=== PATIENT | female | born 1950 | race African-American/Black ===

== ENCOUNTER 2020-09-06 12:13 | Inpatient (IN) | payer OTHER ==
[~2020-09-06] VITALS: Ht 160 cm; Wt 79.4 kg
[~2020-09-06 12:13] MED LIST: ASPIR 8181 MG PO; ATENOLOL 50MG T50 M1 PO; BENICAR20 MG PO; BUTRANS1 EAC2 TD; CALCIUM 500 +1 EAC5 PO; CIPRO500 MG PO; COLACE100 MG PO; COPPER GLUCONATE PO; CRESTOR10 MG PO; CYMBALTA30 MG PO; DHEA50 M1 PO; FISH OIL 1,001000 M2 PO; GABAPENTIN 100100 MG PO; KEFLEX500 MG PO; LEVEMIR SUBQ; LEVOTHYROXIN0.175 MG PO; LEVOTHYROXINE 0.15MG PO; LOPRESSOR25 PO; NABUMETONE 750750 M1 PO; NEXIUM40 MG PO; NORVASC5 MG PO; PLAVIX 75 MG TA75 M1 PO; REQUIP XL2 MG PO; REQUIP1 MG PO; TRAMADOL 50 MG50 MG PO; VITAMIN D32000 UNI1 PO; ZINC50 M1 PO; [UNRECOGNIZED DRUG - MIXTURE] PO
[2020-09-06 12:34] VITALS: BP 209/79
[2020-09-06] MEDS ORDERED: LEVEMIR100 UNIT/1 SUBQ (12:38)
[2020-09-06] MEDS ORDERED: CRESTOR10 MG PO (12:38)
[2020-09-06] MEDS ORDERED: SYNTHROID150 MCG PO (12:39)
[2020-09-06 12:56] LABS: ABSOLUTE LYMPHOCYTES 3.1 thou/uL (0.8-5.3); ABSOLUTE MONOCYTES 0.4 thou/uL (0.0-1.2); ABSOLUTE NEUTROPHILS 4.5 thou/uL (1.6-8.1); BASOPHILS 0.2 %; HEMATOCRIT 34.1 % (37.0-47.0); HEMOGLOBIN 11.6 gm/dL (12.0-15.0); LYMPHOCYTES 38.6 %; MCH 27.8 pg (26.0-34.0); MCHC 33.9 g/dL (28.0-37.0); MONOCYTES 4.9 %; MPV 8.9 fl. (7.2-11.1); NUCLEATED RBCS 0 /100WBC; PLATELET COUNT* 241 thou/uL (150-400); POLYS 56.3 %; RBC 4.16 mil/uL (4.20-5.00); RDW-CV 14.8 % (10.5-14.5)
[2020-09-06 13:07] LABS: POTASSIUM 2.7 mmol/L (3.5-5.1)
[2020-09-06 13:16] LABS: ALBUMIN 4.1 g/dL (3.4-5.0); MAGNESIUM 1.7 mg/dL (1.8-2.4); TOTAL BILIRUBIN 0.5 mg/dL (<0.1-1.0); TOTAL PROTEIN 8.2 g/dL (6.4-8.2)
--- NOTE | 2020-09-06 15:47 | 2DMMODE ---
[place] [address] 2 D/M-MODE ECHOCARDIOGRAM Name: ANTON KWAN Room: [place] [address] ADM IN .R.#: [id number] Admission: 09/06/20 Attend Phys: Sheldon Summers, Discharge: Date of : 46 Date of Service: 09/06/20 1547 Report #: [id number] THIS REPORT FOR: cc: Candi Meyer MD, Ghazal A. MD Holkins, John M. MD [facility] ~ APPROVED REPORT Study performed: 09/06/2020 15:04:52 EXAM: Comprehensive 2D, Doppler, and color-flow Echocardiogram Patient Location: In-Patient Room #: er Status: routine BSA: 1.81 HR: 57 bpm BP: 172/82 mmHg Rhythm: NSR Other Information Study Quality: Good Indications Abnormal ECG 2D Dimensions IVSd: 9.31 (7-11mm) LVOT Diam: 18.66 (18-24mm) LVDd: 46.91 mm PWd: 7.92 (7-11mm) Ascending Ao: 27.93 (22-36mm) LVDs: 27.44 (25-40mm) Aortic Root: 25.75 mm Volumes Left Atrial Volume (Systole) LA ESV Index: 28.40 mL/m2 Aortic Valve AoV Peak Moises.: 1.51 m/s AO Peak Gr.: 9.14 mmHg LVOT Max P.27 mmHg AO Mean Gr.: 4.97 mmHg LVOT Mean P.42 mmHg LVOT Max V: 1.15 m/s AO V2 VTI: 32.37 cm LVOT Mean V: 0.70 m/s BONIFACIO (VTI): 2.18 cm2 LVOT V1 VTI: 25.86 [place] [id number] 2 D/M-MODE ECHOCARDIOGRAM Name: ANTON KWAN Room: [address] IN .R.#: [id number] Admission: 09/06/20 Attend Phys: Sheldon Summers, Discharge: Date of : 46 Date of Service: 09/06/20 1547 Report #: [id number] Mitral Valve E/A Ratio: 1.55 MV Decel. Time: 161.61 ms MV E Max Moises.: 1.47 m/s MV PHT: 46.87 ms MVA (PHT): 4.69 cm2 TDI E/Lateral E': 12.25 E/Medial E': 18.38 Medial E' Moises.: 0.08 m/s Lateral E' Moises.: 0.12 m/s Pulmonary Valve PV Peak Moises.: 0.99 m/s PV Peak Gr.: 3.89 mmHg Tricuspid Valve RAP Estimate: 5.00 mmHg TR Peak Gr.: 54.74 mmHg RVSP: 59.00 mmHg PA Pressure: 59.00 mmHg Left Ventricle The left ventricle is normal size. There is normal LV segmental wall motion. There is normal left ventricular wall thickness. Left ventricular systolic function is normal. The left ventricular ejection fraction is within the normal range. LVEF is 55-60%. Grade IV - fixed restrictive diastolic dysfunction. Right Ventricle Right ventricle is mildly dilated. The right ventricular systolic function is normal. Atria The left atrium size is normal. Right atrium is mildly dilated. Aortic Valve The aortic valve is normal in structure. No aortic regurgitation is present. There is no aortic valvular stenosis. Mitral Valve Mild mitral annular calcification. Moderate mitral regurgitation. No evidence of mitral valve stenosis. Tricuspid Valve The tricuspid valve is normal in structure. Moderate tricuspid regurgitation. Mod[place] [id number] 2 D/M-MODE ECHOCARDIOGRAM Name: ANTON KWAN Room: [address] IN [facility]#: [id number] Admission: 09/06/20 Attend Phys: Sheldon Summers, Discharge: Date of : 46 Date of Service: 09/06/20 1547 Report #: [id number] Pulmonic Valve The pulmonary valve is normal in structure. There is no pulmonic valvular regurgitation. Great Vessels The aortic root is normal in size. IVC is normal in size and collapses >50% with inspiration. Pericardium There is no pericardial effusion. <Conclusion> The left ventricle is normal size. There is normal left ventricular wall thickness. Left ventricular systolic function is normal. The left ventricular ejection fraction is within the normal range. LVEF is 55-60%. Right ventricle is mildly dilated. The right ventricular systolic function is normal. The left atrium size is normal. Right atrium is mildly dilated. The aortic valve is normal in structure. Mild mitral annular calcification. Moderate mitral regurgitation. No evidence of mitral valve stenosis. The tricuspid valve is normal in structure. Moderate tricuspid regurgitation. Moderate pulmonary hypertension. IVC is normal in size and collapses >50% with inspiration. There is no pericardial effusion. There is normal LV segmental wall motion. <ELECTRONICALLY SIGNED> By: Armando Rae MD, FACC 09/06/20 1547 1547 1547 Armando Rae MD, FACC /INF
--- NOTE | 2020-09-06 16:13 | EKG ---
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1950 Requested By: Ruel Mccauley Order Number: [id number] MD: Armando Rae Measurements Intervals [place] Rate: 56 P: 0 MS: 310 QRS: -33 QRSD: 98 T: QT: 546 QTc: 528 Interpretive Statements Sinus rhythm with type I second-degree AV block LVH w/ repol abnormalities, possible ischemia Prolonged QT interval Compared to ECG 08/27/2016 16:45:05 Type I second-degree AV block is noted and the heart rate has decreased Possible ischemia now present Prolonged QT interval now present Electronically Signed On 09-06-2020 16:13:45 CDT by Armando Rae [email or web address] <ELECTRONICALLY SIGNED> By: Armando Rae MD, [facility] 09/06/20 1613 1439 1439 Armando Rae MD, [facility] /EPI
[2020-09-06 19:00] VITALS: BP 184/65
[2020-09-06 23:00] VITALS: BP 201/71
[2020-09-07 03:57] LABS: ABSOLUTE LYMPHOCYTES 2.1 thou/uL (0.8-5.3); ABSOLUTE MONOCYTES 0.5 thou/uL (0.0-1.2); ABSOLUTE NEUTROPHILS 3.6 thou/uL (1.6-8.1); BASOPHILS 0.3 %; HEMATOCRIT 34.2 % (37.0-47.0); HEMOGLOBIN 11.5 gm/dL (12.0-15.0); LYMPHOCYTES 33.8 %; MCH 27.7 pg (26.0-34.0); MCHC 33.7 g/dL (28.0-37.0); MCV 82.4 fL (80.0-100.0); MONOCYTES 7.5 %; MPV 9.1 fl. (7.2-11.1); NUCLEATED RBCS 0 /100WBC; PLATELET COUNT* 216 thou/uL (150-400); POLYS 58.4 %; RBC 4.15 mil/uL (4.20-5.00); RDW-CV 14.8 % (10.5-14.5); WBC 6.2 thou/uL (4.0-11.0)
[2020-09-07 05:41] LABS: POTASSIUM 3.1 mmol/L (3.5-5.1)
[2020-09-07 05:42] LABS: CALCIUM 8.8 mg/dL (8.5-10.1); CREATININE 0.7 mg/dL (0.6-1.3)
[2020-09-07] MEDS ORDERED: SYNTHROID125 MC1 PO (07:55)
[2020-09-07 08:00] VITALS: BP 188/72
--- NOTE | 2020-09-07 09:45 | NUR ---
PT TRANSPORTED TO STRESS TEST.
[2020-09-07 12:48] VITALS: BP 179/67
--- NOTE | 2020-09-07 12:51 | EKG ---
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 <ELECTRONICALLY SIGNED> By: Armando Rae MD, [facility] 09/07/20 1251 1230 1230 Armando Rae MD, [facility] /EPI
[2020-09-07] MEDS ORDERED: NORVASC5 MG PO (15:39)
[2020-09-07] MEDS ORDERED: COZAAR 50 MG TA50 M1 PO (15:39)
--- NOTE | 2020-09-07 16:00 | NUR ---
PATIENT TRANSFER FROM ER EARLIER, ASSUMED CARE OF PATIENT. DENIES CHEST PAIN AT THIS TIME. STRESS TEST COMPLETED EARLIER. NOTIFIED BY CARDIOLOGY OK TO DISCHARGE. DISCHARGE ORDERS RECEIVED BY PRIMARY. GIVEN PRN BP IV MED FOR ELEVATED BP - RECHECKED BP 156/69. EDUCATED ON DISCHARGE INSTRUCTIONS, VERBALIZED UNDERSTANDING. ALL PERSONAL BELONGINGS COLLECTED BY PATIENT FOR DISCHARGE. AWAITING FOR FAMILY TO ARRIVE FOR RIDE HOME. 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
[2020-09-07 16:57] VITALS: BP 156/69
[2020-09-07 17:06] VITALS: BP 156/69
--- NOTE | 2020-09-07 17:21 | CARDNUC ---
[place] [address] CARDIAC NUCLEAR IMAGING REPORT Name: ANTON KWAN Room: [address] IN [facility]#: [id number] Admission: 09/06/20 Attend Phys: Sheldon Summers, Discharge: Date of : 46 Date of Service: 09/07/20 1721 Report #: [id number] THIS REPORT FOR: cc: Candi Meyer MD, Ghazal A. MD Liston, Michael J. MD [facility] ~ APPROVED REPORT Study performed: 09/06/2020 14:23:00 Indication: Dyspnea Patient Location: In-Patient Room #: er Stress Nurse: Fabiola Sullivan RN Ht: 5 ft 2 in Wt: 175 lbs BSA: 1.81 m2 BMI: 32.00 Medical History Medical History: Diabetes, HTN, Hyperlipidemia Medications: kcl, hydralazine, amlodipine, atenolol, rosuvastatin Allergies: penicillin, hydrocodone, tetrancycline Cardiac Risk Factors: Age, HTN, DM, Hyperlipidemia Exercise History: Physically active Resting Data Rest SPECT myocardial perfusion imaging was performed in supine position 30 minutes following the intravenous injection of 9.5 mCi of Tc-99m Sestamibi. Time of rest injection: 08:50 The images were gated to evaluate regional wall motion and calculate left ventricular ejection fraction. Administration Route: IV Administration Site: Left AC Pharmacologic Stress Pharmacologic stress test was performed by injecting Regadenoson 0.4 mg IV push over 10-15 seconds immediately followed by the intravenous injection of 32.2 mCi of Tc-99m Sestamibi. Time of stress injection: 1:30 Administration Route: IV Administration Site: Left AC Heart Rate at time of stress injection: [address] [place] [address] CARDIAC NUCLEAR IMAGING REPORT Name: ANTON KWAN Room: [address] IN ..#: [id number] Admission: 09/06/20 Attend Phys: Sheldon Summers, Discharge: Date of : 46 Date of Service: 09/07/20 1721 Report #: [id number] Gated Stress SPECT was performed 40 minutes after stress injection. The images were gated to evaluate regional wall motion and calculate left ventricular ejection fraction. Prone imaging was performed. Stress Test Details Stress Test: Pharmacologic stress testing performed using 0.4 mg of regadenoson per 5 mL given IV over 10 seconds. HR Max Heart Rate (APMHR): 149 bpm Resting HR: 65 bpm Target HR (85% APMHR): 126 bpm Max HR Achieved: 95 bpm % of APMHR: 63 Recovery HR: 71 bpm BP Resting BP: 246/104 mmHg Max BP: 247/100 mmHg Recovery BP: 191/89 mmHg ECG Resting ECG: Sinus Rhythm Stress ECG: Sinus Rhythm ST Change: None Arrhythmia: Mobitz 1 second-degree AV block Recovery ECG: Sinus Rhythm Recovery ST Change: None Recovery Arrhythmia: Mobitz 1 second-degree AV block Clinical Reason for Termination: Completed protocol The patient tolerated Lexiscan infusion without significant cardiac symptoms. Nurse Comments 650 aspirin given for headache Stress ECG Conclusion The baseline twelve-lead EKG shows sinus rhythm with type I second-degree AV block. No significant ST segment or T wave abnormalities were noted at baseline. EKGs obtained during and post Lexiscan infusion show sinus rhythm with continued type I second-degree AV block. There were no significant ST segment changes [place] [address] CARDIAC NUCLEAR IMAGING REPORT Name: ANTON KWAN Room: [address]#: [id number] Admission: 09/06/20 Attend Phys: Sheldon Summers, Discharge: Date of : 46 Date of Service: 09/07/20 1721 Report #: [id number] Study Quality Study: Good Artifact: No artifact Study Data At rest, the left ventricular ejection fraction was 80%.. Post stress, the left ventricular ejection was 80%.. TID = 1.01. Perfusion Perfusion images obtained at rest and post Lexiscan stress show uniform uptake of the radioisotope throughout the myocardium. There were no defects to suggest infarct or ischemia. Wall Motion Normal left ventricular wall motion. Nuclear Conclusion ECG Findings: negative for ischemia Clinical Findings: negative for ischemia Nuclear Findings: negative for ischemia Exercise Capacity: not assessed Left Ventricular Function: normal Risk Study: low Perfusion images show no defect to suggest infarct or ischemia. Left ventricular systolic function is normal on gated studies. This is a low risk study. <Conclusion> The baseline twelve-lead EKG shows sinus rhythm with type I second-degree AV block. No significant ST segment or T wave abnormalities were noted at baseline. EKGs obtained during and post Lexiscan infusion show sinus rhythm with continued type I second-degree AV block. There were no significant ST segment changes when compared to baseline. <ELECTRONICALLY SIGNED> By: Dany Pinon MD, FACC 09/07/201720 20 20 Dany Pinon MD, FACC /INF
--- NOTE | 2020-09-07 18:15 | NUR ---
DC'D VIA W/C ACCOMPANIED BY DAUGHTER VIA W/C WITH ALL PERSONAL BELONGINGS.
[2020-10-10] MEDS ORDERED: CHLORTHALIDONE25 MG PO (15:27)
== END 2020-09-07 18:39 | disposition home or self-care (01) | DRG 309 ==
LOC: M.ERS 12:13 → M.2W 13:42 → M.TBA-ER 13:42 → M.2W 13:42
PROVIDERS: Emergency Medicine Emergency Medical Services; ADMIT Internal Medicine; ATTEND Internal Medicine
DX: I44.1 Atrioventricular block, second degree (principal); I50.32 Chronic diastolic (congestive) heart failure; I16.0 Hypertensive urgency; E87.6 Hypokalemia; I20.9 Angina pectoris, unspecified; I10 Essential (primary) hypertension; E78.5 Hyperlipidemia, unspecified; E11.9 Type 2 diabetes mellitus without complications; E03.9 Hypothyroidism, unspecified; G62.9 Polyneuropathy, unspecified; I34.0 Nonrheumatic mitral (valve) insufficiency

== ENCOUNTER → 2020-09-25 | Outpatient (CLI) | payer OTHER ==
[~2020-09-25] MED LIST changes: +COZAAR 50 MG TA50 M1 PO; +LEVEMIR100 UNIT/1 SUBQ; +SYNTHROID125 MC1 PO; +SYNTHROID150 MCG PO
[2020-09-25 12:55] LABS: ALBUMIN 3.9 g/dL (3.4-5.0); CALCIUM 9.5 mg/dL (8.5-10.1); CREATININE 1.2 mg/dL (0.6-1.3); TOTAL BILIRUBIN 0.3 mg/dL (<0.1-1.0); TOTAL PROTEIN 8.3 g/dL (6.4-8.2)
[2020-09-25 13:19] LABS: POTASSIUM 2.9 mmol/L (3.5-5.1)
== END ==
LOC: M.LAB 12:20
PROVIDERS: ATTEND Registered Nurse
DX: I50.32 Chronic diastolic (congestive) heart failure (principal)

== ENCOUNTER → 2020-10-03 | Outpatient (CLI) | payer OTHER ==
[2020-10-03 11:29] LABS: CALCIUM 9.3 mg/dL (8.5-10.1); CREATININE 1.2 mg/dL (0.6-1.3)
== END ==
LOC: M.LAB 10:55
PROVIDERS: ATTEND Registered Nurse
DX: E87.8 Other disorders of electrolyte and fluid balance, not elsewhere classified (principal); I11.0 Hypertensive heart disease with heart failure; I50.32 Chronic diastolic (congestive) heart failure

== ENCOUNTER → 2020-10-12 | Outpatient (CLI) | payer OTHER ==
[~2020-10-12] VITALS: Ht 160 cm; Wt 77.6 kg
[~2020-10-12] MED LIST changes: +CHLORTHALIDONE25 MG PO
[2020-10-12 11:15] LABS: HEMATOCRIT 41.6 % (37.0-47.0); HEMOGLOBIN 13.7 gm/dL (12.0-15.0); MCH 26.8 pg (26.0-34.0); MCHC 32.9 g/dL (28.0-37.0); MCV 81.4 fL (80.0-100.0); MPV 9.4 fl. (7.2-11.1); RBC 5.1 mil/uL (4.20-5.00); RDW-CV 15.2 % (10.5-14.5); WBC 6.9 thou/uL (4.0-11.0)
[2020-10-12 11:23] LABS: CALCIUM 9.9 mg/dL (8.5-10.1); POTASSIUM 3.7 mmol/L (3.5-5.1)
[2020-10-12 11:33] LABS: ALBUMIN 4.2 g/dL (3.4-5.0); TOTAL BILIRUBIN 0.3 mg/dL (<0.1-1.0); TOTAL PROTEIN 8.5 g/dL (6.4-8.2)
[2020-10-12 11:36] LABS: APTT 24.6 Seconds (25.0-31.3); PROTIME 10.5 Seconds (9.20-11.50)
[2020-10-12 11:55] VITALS: BP 190/94
--- NOTE | 2020-10-12 13:44 | EKG ---
[place] [address] ELECTROCARDIOGRAM REPORT Name: ANTON KWAN Room: [facility]#: [id number] Admission: 10/12/20 Attend Phys: Dany Pinon, Discharge: Date of : 46 Date of Service: 10/12/20 1111 Report #: [id number] THIS REPORT FOR: //name// 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1950 Requested By: Dany Pinon Order Number: [id number] Reading MD: Luciano Rajan Measurements Intervals [place] Rate: 91 P: 0 PA: 141 QRS: -42 QRSD: 87 T: 67 QT: 542 QTc: 668 Interpretive Statements Second degree AV block, Mobitz I Ventricular premature complex Left anterior fascicular block Abnormal R-wave progression, late transition Left ventricular hypertrophy Prolonged QT interval Compared to ECG 09/06/2020 14:39:14 Ventricular premature complex(es) now present Left anterior fascicular block now present Possible ischemia no longer present Electronically Signed On 10-12-2020 13:44:38 CDT by Luciano Rajan [email or web address] <ELECTRONICALLY SIGNED> By: Luciano Rajan MD, [facility] 10/12/20 1344 1111 1111 Luciano Rajan MD, [facility] /EPI
[2020-10-12 15:15] VITALS: BP 178/76
[2020-10-12 15:30] VITALS: BP 188/71
[2020-10-12 15:45] VITALS: BP 186/72
--- NOTE | 2020-10-12 16:13 | CARD ---
[address] [address] CARDIAC CATH REPORT Name: ANTON KWAN Room: [facility]#: [id number] Admission: 10/12/20 Attend Phys: Dany Pinon MD Discharge: Date of : 46 Report #: [id number] THIS REPORT FOR: cc: Candi Meyer MD, Ghazal A. MD Liston, Michael J. MD [facility] ~ APPROVED REPORT Study performed: 10/12/2020 13:20:00 Patient Status: Out-Patient Room #: Event Personnel: Christiano Calzada RTR Monitor, Bertha Cisneros RTR ScrubFabrizio Tiffany RN RN, Dany Pinon Proj Engineer Exam: Insertion of Dual Chamber Permanent Pacemaker Indications: 2:1 AV Block The patient is a 70 year-old female with a history of Second-degree AV block with symptomatic bradycardia. Conscious Sedation Fentanyl 75 mcg Versed 4 mg Implanted Devices: Sonja JOHNSON, Ser# [id number], V-Lead Solia S 53, Ser# [id number], A-Lead Solia S 45, Ser# [id number] Procedure The patient underwent informed consent. We discussed the details of the procedure including the risks, which include, but not limited to bleeding, infection, vascular damage, cardiac perforation, and pneumothorax. She understood these risks and was willing to proceed. As such, she was brought to the EP/Cardiac Catheterization laboratory in a fasting and sedated state and prepped and draped in a sterile fashion, received IV antibiotics prior to initiation of the procedure and a venogram was performed showing patency of the left axillary vein. The patient underwent conscious sedation, with no related complications. The patient was brought to the EP/Cardiac Catheterization laboratory and the left chest and shoulder were prepped and draped in a sterile manner. During this case, Fluoroscopy and Iso-osmolar contrast were used for imaging. IV conscious sedation was used throughout procedure with appropriate monitoring and was performed in the [place] [address] CARDIAC CATH REPORT Name: ANTON KWAN Room: [facility]#: [id number] Admission: 10/12/20 Attend Phys: Dany Pinon MD Discharge: Date of : 46 Report #: [id number] who was an independent trained observer other than the physician performing the procedure. The left subclavian region was infiltrated with 2% Lidocaine with Epinephrine subcutaneous anesthesia. A transverse incision was made in the left upper chest cavity. The subcutaneous pocket was formed via blunt dissection. Percutaneous venous access was achieved and an introducer sheath was inserted into the left Subclavian vein. Sheaths were positions using the modified Seldinger technique Through the introducer sheaths the atrial and ventricular lead wires were positioned in the right atrial appendage and right ventricular apex respectively. Utilizing fluoroscopic guidance, the atrial and ventricular lead wires were advanced over the wires and positioned in the right atria and right ventricle respectively. Capturing and sensing thresholds were verified. The ventricular lead was interrogated and Electrode Parameters P Wave: 5.6 mV Atrial Threshold: 0.6 V at 0.40 ms Ventricular Threshold: 1.5 V at 0.40 ms Atrial Resistance: 454 ohms Ventricular Resistance: 835 ohms Dual Chamber The atrial and ventricular leads were then secured using 0 silk sutures. The subcutaneous pocket was irrigated with ancef antibiotic solution.The atrial and ventricular leads were attached to the appropriate receptacles on the pulse generator and set screws firmly tightened to insure adequate contact and stability. The lead and pulse generator were placed into the subcutaneous pocket. Sharp and sponge counts were confirmed to be correct. At this time the pocket was closed subcutaneously with a 2.0 Vicryl and the skin was closed with a 4.0 Vicryl. The operative site was dressed in sterile fashion with steri strips and the patient was transferred to the floor in stable condition. Complications The patient tolerated the procedure well and there were no complications associated with the procedure. Conclusion 1. Second-degree AV block [place] [address] CARDIAC CATH REPORT Name: JENNIFER KWANSAURABH Duncan [id number] Admission: 10/12/20 Attend Phys: Dany Pinon MD Discharge: Date of : 46 Report #: [id number] 2. Successful placement of a dual-chamber pacemaker with atrial and ventricular lead placement. Recommendations 1. Follow-up site check in 1 week. 2. Follow-up device interrogation in 1 month. <ELECTRONICALLY SIGNED> By: Dany Pinon MD, FACC 10/12/20 1613 1613 1613Michaeryan Pinon MD, FACC /INF
--- NOTE | 2020-10-13 09:19 | EKG ---
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 : 1950 Requested By: Dany Pinon Order Number: [id number] Reading MD: Luciano Rajan Measurements Intervals [place] Rate: 78 P: 53 RI: 75 QRS: -40 QRSD: 86 T: 70 QT: 577 QTc: 658 Interpretive Statements Atrial-paced complexes Left anterior fascicular block Left ventricular hypertrophy Prolonged QT interval Baseline wander in lead(s) II,III,aVF Compared to ECG 10/12/2020 11:11:47 Second-degree AV block, Mobitz type I (Wenckebach) no longer present Ventricular premature complex(es) no longer present Electronically Signed On 10-13-2020 9:18:58 CDT by Luciano Rajan [email or web address] <ELECTRONICALLY SIGNED> By: Luciano Rajan MD, [facility] 10/13/20917 31 31 Luciano Rajan MD, [facility] /EPI
--- NOTE | 2020-10-13 09:21 | EKG ---
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 : 1950 Requested By: Dany Pinon Order Number: [id number] Reading MD: Luciano Rajan Measurements Intervals [place] Rate: 80 P: 0 CO: 198 QRS: -42 QRSD: 95 T: 61 QT: 480 QTc: 554 Interpretive Statements sinus rhythm with first degree AV block atrial and ventricular paced beats noted Left anterior fascicular block Left ventricular hypertrophy Prolonged QT interval Compared to ECG 10/12/2020 16:32:57 no change Electronically Signed On 10-13-2020 9:21:14 CDT by Luciano Rajan [email or web address] <ELECTRONICALLY SIGNED> By: Luciano Rajan MD, [facility] 10/13/2021 1635 1635 Luciano Rajan MD, [facility] /EPI
== END | disposition home or self-care (01) ==
LOC: M.CL 09:41
PROVIDERS: ATTEND Internal Medicine Cardiovascular Disease
DX: I44.1 Atrioventricular block, second degree (principal); R00.1 Bradycardia, unspecified; I10 Essential (primary) hypertension; E78.00 Pure hypercholesterolemia, unspecified; E03.9 Hypothyroidism, unspecified; E11.9 Type 2 diabetes mellitus without complications; Z98.890 Other specified postprocedural states; Z79.899 Other long term (current) drug therapy; Z87.891 Personal history of nicotine dependence; Z20.822 Contact with and (suspected) exposure to COVID-19; Z88.0 Allergy status to penicillin; Z88.8 Allergy status to other drugs, medicaments and biological substances; Z79.4 Long term (current) use of insulin; Z90.710 Acquired absence of both cervix and uterus